=== PATIENT | male | born 1940 | race Hispanic/Latino ===

== ENCOUNTER → 2018-03-07 | Outpatient (CLI) | payer MEDICARE ==
[~2018-03-07] MED LIST: IOPAMIDOL 370 MG/ML 200 ML INFUS..BTL INJ ONE; SODIUM CHLORIDE 0.9% 100 ML 100 ML ONE
[2018-03-07 17:16] LABS: CREATININE, SERUM 1.5 mg/dL (0.72-1.25)
--- NOTE | 2018-03-13 08:49 | Diagnostic Imaging Report ---
ABDOMINOPELVIC CT WITH CTA RUNOFF PROTOCOL WITH IV CONTRAST. 3D post-processing of the images was performed, and the post-processed images were used in interpretation. REASON FOR STUDY: PVD COMPARISON: none available. RADIATION DOSE: Dose length product: 655.7 mGy cm Dose modulation, iterative reconstruction, and/or weight based adjustment of the mA/kV was utilized to reduce the radiation dose to as low as reasonably achievable. Routine protocol performed. FINDINGS: VESSELS: There are moderate calcified and noncalcified atherosclerotic plaques in the aorta and its major branches. There is no evidence of a flap within the aorta to suggest a dissection. No evidence of abdominal aortic aneurysm. The suprarenal abdominal aorta measures up to 2.4 cm and the infrarenal abdominal aorta measures up to 2.0 cm. The celiac artery, superior mesenteric artery, and inferior mesenteric artery are patent and demonstrate moderate atherosclerotic changes. There is a single right renal artery and a single left renal artery, both of which are patent. Moderate atherosclerotic changes of bilateral common and internal iliac arteries and mild atherosclerotic changes of bilateral external iliac arteries. Right lower extremity: Moderate atherosclerotic changes of the right common femoral artery, deep femoral artery, and proximal right superficial femoral artery without significant stenosis. Severe atherosclerotic changes of the distal right superficial femoral artery. There is ectasia of the right distal superficial femoral artery measuring up to 1.4 cm. There is occlusion of the distal right superficial femoral artery as well as nearly the entire course of the popliteal artery. 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 A small portion of the mid popliteal artery demonstrates partial recanalization on series 3, image 235. The tibioperoneal trunk is occluded. The tibioperoneal trunk and branch vessels demonstrate severe atherosclerotic calcifications. The anterior tibial artery is occluded proximally, and reconstitutes in its midportion on image 270. The anterior tibial artery is patent to the level of the distal ankle where it demonstrates multifocal stenosis as the dorsalis pedis. The peroneal artery is occluded at the origin and demonstrates small areas of recanalization of the proximal portion then is occluded in the mid and distal portions. The posterior tibial artery is occluded at the origin, reconstitutes briefly proximally and then is occluded throughout its course until distally when it reconstitutes in the medial ankle. Left lower extremity: Mild atherosclerotic changes of the left common femoral artery, deep femoral artery, and proximal left superficial femoral artery without significant stenosis. Severe atherosclerotic changes of the distal left superficial femoral artery. There is ectasia of the distal left superficial femoral artery measuring up to 1.2 cm. There is a partially thrombosed left popliteal artery aneurysm, which measures up to 3.7 x 4.0 cm. The aneurysm extends to the distal left popliteal artery, where measures up to 2.5 x 2.4 cm, which is partially thrombosed. The tibioperoneal trunk and branch vessels demonstrate severe atherosclerotic calcifications. The tibioperoneal trunk is occluded. The anterior tibial artery is occluded to the level of the ankle, and then reconstitutes for a tiny segment distally and then occludes again. The dorsalis pedis reconstitutes and demonstrates multifocal stenoses. The peroneal artery is occluded from the origin throughout to the distal portion where it reconstitutes in small segments and then occludes again. The posterior tibial artery is occluded throughout its course. ABDOMEN: Patchy subsegmental atelectasis at the lung bases. There is a 4 mm left lower lobe ground glass nodule on series 3, image 5. Small hiatal hernia. The liver, pancreas, spleen, are unremarkable. There is no intra-abdominal or retroperitoneal adenopathy. There is scattered colonic diverticulosis without CT evidence of diverticulitis. There is a 1.9 cm right adrenal nodule (1 HU), consistent with adrenal adenoma. Bilateral wedge-shaped defects of the kidneys, suggestive of renal infarcts. BONES: There are no bony lytic or blastic lesions. There is sacralization of the inferior most lumbar vertebral body. For purposes of numbering, the level superior to this will be considered L5. There is a severe wedge compression deformity of L1 with loss of greater than 75% of vertebral body height. No evidence of bony retropulsion. IMPRESSION: 1. Bilateral popliteal artery aneurysms, left larger than right, completely thrombosed on the right and partially thrombosed on the left. Near complete occlusion of bilateral lower extremity runoff vessels as above. Note is made per Cardiology note on 02/24/18, the patient has known occluded right popliteal artery aneurysm. 2. Severe atherosclerotic changes of the bilateral superficial femoral artery, popliteal artery, and branch vessels. Ectasia of bilateral distal superficial femoral arteries as above. 3. Reconstitution of the right posterior tibial artery and right dorsalis pedis artery at the ankle, which are multifocally stenosed, and supply the right foot. 4. Reconstitution of the dorsalis pedis artery on the left which demonstrates multifocal stenoses and supplies the left foot. 5. Moderate atherosclerotic changes of the abdominal aorta and branch vessels. No evidence of aortic dissection or aneurysm. 6. Age indeterminate severe wedge compression deformity of L1. Signed by: Dr. Azeb Denis MD on 03/13/2018 9:44 AM
== END ==
LOC: CT 16:18
PROVIDERS: ATTEND Thoracic Surgery (Cardiothoracic Vascular Surgery)
DX: I73.9 Peripheral vascular disease, unspecified (principal)
CPT/HCPCS: 36415; 75635; 82565; 84520; Q9967

== ENCOUNTER → 2018-05-22 | Outpatient (CLI) | payer MEDICARE ==
[~2018-05-22] MED LIST changes: -IOPAMIDOL 370 MG/ML 200 ML INFUS..BTL INJ ONE; -SODIUM CHLORIDE 0.9% 100 ML 100 ML ONE; +SODIUM CHLORIDE 0.9% 500ML 500 ML ONE
[2018-05-22 15:39] LABS: ANION GAP 13.5 mmol/L (8-16); CALCIUM 8.4 mg/dL (8.4-10.2); CREATININE, SERUM 1.42 mg/dL (0.72-1.25); POTASSIUM 4.5 mmol/L (3.5-5.1)
--- NOTE | 2018-05-23 08:56 | Diagnostic Imaging Report ---
CTA OF THE ABDOMEN, PELVIS AND BILATERAL LOWER EXTREMITIES WITH CONTRAST. INDICATION: Popliteal artery aneurysm COMPARISON: CTA, abdomen, pelvis and lower extremities, 03/07/2018 TECHNIQUE: Abdomen and pelvis were scanned utilizing a multidetector helical scanner from the lung base to the pubic symphysis after administration of IV contrast. Coronal and sagittal reformations were obtained. Routine protocol was performed. Scan was performed when during portal venous phase. CT angiography protocol was used. IV CONTRAST: 100 mL of Isovue-370 ORAL CONTRAST: None RADIATION DOSE: Total DLP: 660.72 mGy*cm Estimated effective dose: (DLP x 0.015 x size factor) mSv COMPLICATIONS: None Dose modulation, iterative reconstruction, and/or weight based adjustment of the mA/kV was utilized to reduce the radiation dose to as low as reasonably achievable. DISCUSSION: ABDOMEN AND PELVIS: LINES and TUBES: None. LOWER THORAX: Lung bases clear. Heart size normal with extensive coronary artery calcification. HEPATOBILIARY: No focal hepatic lesions. No biliary ductal dilation. GALLBLADDER: No radio-opaque stones or sludge. No wall thickening. SPLEEN: No splenomegaly. PANCREAS: No focal masses or ductal dilatation. ADRENALS: Fat density 1.7 cm right adrenal nodule compatible with lipid rich adenoma. KIDNEYS/URETERS: Kidneys enhance symmetrically. Lobulated renal contours, possibly relating to scars or infarcts. No hydronephrosis. Stable 3.2 cm upper pole right renal cyst. No stones. GI TRACT: No abnormal distention, wall thickening, or evidence of bowel obstruction. Sigmoid diverticulosis with no CT evidence for acute diverticulitis. Appendix is normal. PELVIC ORGANS/BLADDER: Unremarkable. LYMPH NODES: No lymphadenopathy. PERITONEUM / RETROPERITONEUM: No free air or fluid. BONES: Stable compression of T12 with degenerative changes. SOFT TISSUES: Superficial surrounding soft tissues show an umbilical hernia containing fat. VESSELS: Abdominal aorta: The abdominal aorta is atherosclerotic without aneurysm or dissection. Celiac, SMA, bilateral renal arteries and ELIF are patent. Right lower extremity: Common and external iliac arteries are patent without high-grade stenosis. Internal iliac artery is also patent. Common femoral, deep femoral and superficial femoral arteries are patent. Distal superficial femoral artery is ectatic with localized 1.4 cm aneurysm just above the abductor canal. The proximal popliteal artery is patent. Again noted is a 2.8 cm thrombosed popliteal artery aneurysm behind the knee. The distal half of the popliteal artery is occluded. The popliteal trifurcation is occluded. There is apparent reconstitution of the distal anterior tibial artery with less opacification of the dorsalis pedis than on previous exam. Left lower extremity: Left common and external iliac arteries are patent without high-grade stenosis. Internal iliac is also patent. Common femoral, superficial femoral and popliteal arteries are patent on the left. The mid popliteal artery is less well opacified than on the previous exam. Some opacification remains within the 3.6 cm left popliteal artery aneurysm behind the knee but there is now no opacification of the popliteal artery below the aneurysm. There is some reconstitution of the peroneal artery in the calf with no significant flow seen into the dorsalis pedis or posterior tibial arteries. IMPRESSION: 1. No significant change of abdominal findings. Right adrenal adenoma and right renal cyst again noted. Lobulated contours of the kidneys likely reflecting scar or infarcts. 2. In the right lower extremity, again noted is a thrombosed popliteal artery aneurysm behind the knee. No significant popliteal reconstitution is seen below the aneurysm or the popliteal trifurcation. There is less opacification of the distal anterior tibial artery and dorsalis pedis artery than on prior exam which may indicate progression of occlusive disease or may be a function of bolus timing. 3. In the left lower extremity, again noted is a large mid popliteal artery aneurysm behind the knee. There is less opacification within the aneurysm and absent opacification of the distal popliteal artery below the aneurysm, likely reflecting progression of popliteal occlusion. There is trace opacification of the peroneal artery and in the reconstituted dorsalis pedis artery. Signed by: Dr. Juan José Vincent M.D. on 05/23/2018 8:53 AM
== END ==
LOC: CT 14:31
PROVIDERS: ATTEND Internal Medicine Interventional Cardiology
DX: I72.4 Aneurysm of artery of lower extremity (principal)
CPT/HCPCS: 36415; 75635; 80048; 96360; J7040

== ENCOUNTER → 2018-10-21 | Day surgery (SDC) | payer MEDICARE ==
--- NOTE | 2018-10-13 15:17 | Diagnostic Imaging Report ---
EXAMINATION: CHEST 2 VIEWS INDICATION: Pre-operative COMPARISON: None FINDINGS: LINES/TUBES:None LUNGS:The lungs are well-inflated. No focal consolidation or pulmonary edema. Symmetric nodular opacities overlying the lower lung zones consistent with nipple shadows. PLEURA:No pleural effusion or pneumothorax. MEDIASTINUM:The cardiomediastinal silhouette appears normal in size and shape. Atherosclerotic calcifications of the thoracic aorta. BONES/SOFT TISSUES:Age-indeterminate T12 compression fracture. ABDOMEN:No free air under the diaphragm. IMPRESSION: No focal pneumonia or pulmonary edema. Signed by: Boo Cui MD on 10/13/2018 3:14 PM
[2018-10-13 16:54] LABS: BASOPHILS % 0.6 % (0.0-1.0); EOSINOPHILS # (AUTO) 0.1 (0.0-0.4); HEMATOCRIT 41.7 % (38.2-49.6); HEMOGLOBIN 13.7 g/dL (14.0-18.0); LYMPHOCYTES # (AUTO) 1.8 (1.0-3.2); LYMPHOCYTES % 27.9 % (18.0-39.1); MEAN CORPUSCULAR HEMOGLOBIN 31.4 pg (28-32); MEAN CORPUSCULAR HGB CONC 32.9 g/dL (31-35); MEAN CORPUSCULAR VOLUME 95.6 fL (81-99); MONOCYTES # (AUTO) 0.6 (0.2-0.8); MONOCYTES % 8.8 % (4.4-11.3); NEUTROPHILS # (AUTO) 3.9 (2.1-6.9); NEUTROPHILS % 60.5 % (38.7-80.0); PLATELET COUNT 219 x10e3/uL (140-360); RED BLOOD COUNT 4.36 x10e6/uL (4.3-5.7); RED CELL DISTRIBUTION WIDTH 13.9 % (11.7-14.4)
[2018-10-13 17:07] LABS: ANION GAP 16.8 mmol/L (8-16); CALCIUM 9.4 mg/dL (8.4-10.2); CREATININE, SERUM 1.38 mg/dL (0.72-1.25)
[2018-10-13 17:08] LABS: POTASSIUM 5.8 mmol/L (3.5-5.1)
[~2018-10-21] MED LIST changes: +ACETAMINOPHEN/CODEINE 300MG - 30MG TAB ONE; +AVODART0.5 MG PO; +BACITRACIN 50,000 UNIT VIAL ONE; +BUPIVACAINE HCL 0.5% INJ 30 ML VIAL INJ ONE; +FENTANYL CITRATE/PF 100MCG/2 ML INJ ONE; +GLYCOPYRROLATE INJ 1MG/ 5 ML SYR ONE; +HYDRALAZINE HCL 20 MG/ML VIAL ONE; +LABETALOL HCL 5 MG/ML 20ML VIAL ONE; +LEVOFLOXACIN 500MG/D5W 100ML 100 ML IV ONE; +LIDOCAINE HCL 2% LOCAL INJ 5 ML SDV VIAL INJ ONE; +LISINOPRIL10 MG PO; +ONDANSETRON HCL INJ 2MG/ML 2ML 2 MG/ML VIAL ONE; +PROPOFOL IV EMULSION 10 MG/ML 50 ML VIAL ONE; +SEVOFLURANE INHAL SOLN 250 ML PEN BTL ONE; -SODIUM CHLORIDE 0.9% 500ML 500 ML ONE; +XARELTO10 MG PO
--- OUTSIDE RECORDS SUMMARY | 2018-10-21 07:43 | XMS REPORT | Summary of Care ---
Author Author OSCAR Justice, DILLAN Manning Unknown Address Unknown Phone Unavailable Care Team Providers Care Social Service Assistant Name Role Phone DR OSCAR GOODE Unavailable Unavailable MAX SIMON, CHANDLER MORENO Unavailable Unavailable LESLIE SIMON, CRISS Villatoro Unavailable Unavailable Unavailable Unavailable Functional Status Name Dates Details Functional status health issues are not documented Status: Name Dates Details Cognitive status health issues are not documented Status: Problems Name Dates Details PVD (peripheral vascular disease) (443.9, I73.9) Status: Active Popliteal artery aneurysm (442.3, I72.4) Status: Active Medications Name Dates Details Norvasc 5 MG Oral Tablet Active Lisinopril 40 MG Oral Tablet * Refills: 0 Active Xarelto 15 MG Oral Tablet * Refills: 0 Active Avodart 0.5 MG Oral Capsule * Refills: 0 Active Allergies and Adverse Reactions Name Dates Details Penicillins (Allergy) Status: Active Procedures Procedure Dates Details Procedures not documented Immunization Name Dates Details Immunizations not documented Social History Name Dates Details - Status: Name Dates Details Never smoker Vital Signs Date Test Result Details [id number] BP Systolic 118 mm[Hg] Status: BP Diastolic 74 mm[Hg] Status: Height 68 in Status: Weight 165 lb Status: Body Mass Index Calculated 25.09 kg/m2 Status: Body Surface Area Calculated 1.88 m2 Status: Results Date Description Value Details [id number] Tobacco Use Screening Completed DONE Plan of Care Name Dates Details Planned Observations Planned Goals not documented Interventions Provided Labs/Procedures/Imaging* CVRAD - Bilateral Lower Arterial Duplex - 19563; Done: 23 Jun 2018 * CVRAD - Lower Arterial Seg. Pressures - 19174; Done: 23 Jun 2018 Instructions Name Dates Details Instructions not documented Encounters Appointment; DILLAN MOORE M.D. Encounter Diagnosis: Problem not documented On: 16-Jun-2018 13:15 Appointment; DR OSCAR GOODE Encounter Diagnosis: Problem not documented On: 23-Jun-2018 15:00
--- OUTSIDE RECORDS SUMMARY | 2018-10-21 07:43 | XMS REPORT ---
Author Author [facility] Address Unknown Phone Unavailable Care Team Providers Care [employer] Name Role Phone MONIKA GALARZA Unavailable Unavailable CRISS NELSON Unavailable Unavailable JAVIER FOREMAN Unavailable Unavailable Problems This patient has no known problems. Allergies, Adverse Reactions, Alerts This patient has no known allergies or adverse reactions. Medications This patient has no known medications. Results Test Description Test Time Test Comments Text Results Atomic Results Result Comments CHEST 2 VIEWS 2018-10-13 15:12:00 [place] [address] Patient Name: DEJAH SEXTON MR #: [id number] : 1940 Age/Sex: 78/M Req #: [id number] Adm Physician: Ordered by: MONIKA GALARZA MD Report #: [id number] Location: OR Room/Bed: Procedure: [id number] DX/CHEST 2 VIEWS Exam Date: Exam Time: REPORT STATUS: Signed EXAMINATION: CHEST 2 VIEWS INDICATION: Pre-operative COMPARISON: None FINDINGS: LINES/TUBES:None LUNGS:The lungs are well- inflated. No focal consolidation or pulmonary edema. Symmetric nodular opacities overlying the lower lung zones consistent with nipple shadows. PLEURA:No pleural effusion or pneumothorax. MEDIASTINUM:The cardiomediastinal silhouette appears normal in size and shape. Atherosclerotic calcifications of the thoracic aorta. BONES/SOFT TISSUES:Age-indeterminate T12 compression fracture. ABDOMEN:No free air under the diaphragm. IMPRESSION: No focal pneumonia or pulmonary edema. Signed by: Medhat Juarez MD on 10/13/2018 3:14 PM Dictated By: MEDHAT JUAREZ MD 13 Transcribed By: ROBERT on 10/13/181513 COPY TO: MONIKA GALARZA MD CTA ABD/PEL/RUN OFF 2018-05-23 08:08:00 [place] [address] Patient Name: DEJAH SEXTON MR #: [id number] : 1940 Age/Sex: 78/M Req #: [id number] Adm Physician: Ordered by: CRISS NELSON MD Report #: [id number] Location: CT Room/Bed: Procedure: [id number] CT/CTA ABD/PEL/RUN OFF Exam Date: 05/22/18 Exam Time: 1615 REPORT STATUS: Signed CTA OF THE ABDOMEN, PELVIS AND BILATERAL LOWER EXTREMIT IES WITH CONTRAST. INDICATION: Popliteal artery aneurysm COMPARISON: CTA, abdomen, pelvis and lower extremities, 03/07/2018 TECHNIQUE: Abdomen and pelvis were scanned utilizing a multidetector helical scanner from the lung base to the pubic symphysis after administration of IV contrast. Coronal and sagittal reformations were obtained. Routine protocol was performed. Scan was performed when during portal venous phase. CT angiography protocol was used. IV CONTRAST: 100 mL of Isovue-370 ORAL CONTRAST: None RADIATION DOSE: Total DLP: 660.72 mGy*cm Estimated effective dose: (DLP x 0.015 x size factor) mSv COMPLICATIONS: None Dose modulation, iterative reconstruction, and/or weight based adjustment of the mA/kV was utilized to reduce the radiation dose to as low as reasonably achievable. DISCUSSION: ABDOMEN AND PELVIS: LINES and TUBES: None. LOWER THORAX: Lung bases clear. Heart size normal with e xtensive coronary artery calcification. HEPATOBILIARY: No focal hepatic lesions. No biliary ductal dilation. GALLBLADDER: No radio-opaque stones or sludge. No wall thickening. SPLEEN: No splenomegaly. PANCREAS: No focal masses or ductal dilatation. ADRENALS: Fat density 1.7 cm right adrenal nodule compatible with lipid rich adenoma. KIDNEYS/URETERS: Kidneys enhance symmetrically. Lobulated renal contours, possibly relating to scars or infarcts. No hydronephrosis. Stable 3.2 cm upper pole right renal cyst. No stones. GI TRACT: No abnormal distention, wall thickening, or evidence of bowel obstruction. Sigmoid diverticulosis with no CT evidence for acute diverticulitis. Appendix is normal. PELVIC ORGANS/BLADDER: Unremarkable. LYMPH NODES: No lymphadenopathy. PERITONEUM / RETROPERITONEUM: No free air or fluid. BONES: Stable compression of T12 with degenerative changes. SOFT TISSUES: Superficial surrounding soft tissues show an umbilical hernia c ontaining fat. VESSELS: Abdominal aorta: The abdominal aorta is atherosclerotic without aneurysm or dissection. Celiac, SMA, bilateral renal arteries and ELIF are patent. Right lower extremity: Common and external iliac arteries are patent without high-grade stenosis. Internal iliac artery is also patent. Common femoral, deep femoral and superficial femoral arteries are patent. Distal superficial femoral artery is ectatic with localized 1.4 cm aneurysm just above the abductor canal. The proximal popliteal artery is patent. Again noted is a 2.8 cm thrombosed popliteal artery aneurysm behind the knee. The distal half of the popliteal artery is occluded. The popliteal trifurcation is occluded. There is apparent reconstitution of the distal anterior tibial artery with less opacification of the dorsalis pedis than on previous exam. Left lower extremity: Left common and external iliac arteries are patent without high-grade stenosis. Internal iliac is also patent. Common femoral, superficial femoral and popliteal arteries are patent on the left. The mid popliteal artery is less well opacified than on the previous exam. Some opacification remains within the 3.6 cm left popliteal artery aneurysm behind the knee but there is now no opacification of the popliteal artery below the aneurysm. There is some reconstitution of the peroneal artery in the calf with no significant flow seen into the dorsalis pedis or posterior tibial arteries. IMPRESSION: 1. No significant change of abdominal findings. Right adrenal adenoma and ri ght renal cyst again noted. Lobulated contours of the kidneys likely reflecting scar or infarcts. 2. In the right lower extremity, again noted is a thrombosed popliteal artery aneurysm behind the knee. No significant popliteal reconstitution is seen below the aneurysm or the popliteal trifurcation. There is less opacification of the distal anterior tibial artery and dorsalis pedis artery than on prior exam which may indicate progression of occlusive disease or may be a function of bolus timing. 3. In the left lower extremity, again noted is a large mid popliteal artery aneurysm behind the knee. There is less opacification within the aneurysm and absent opacification of the distal popliteal artery below the aneurysm, likely reflecting progression of popliteal occlusion. There is trace opacification of the peroneal artery and in the reconstituted dorsalis pedis artery. Signed by: Dr. Kranthi Marshall M.D. on 05/23/2018 8:53 AM Dictated By: KRANTHI MARSHALL MD 2 Transcribed By: ROBERT on 05/23/18852 COPY TO: CRISS NELSON MD CTA ABD/PEL/RUN OFF 2018-03-13 07:53:00 [place] [address] Patient Name: DEJAH SEXTON MR #: [id number] : 1940 Age/Sex: 78/M Req #: [id number] Adm Physician: Ordered by: JAVIER FOREMAN MD Report #: [id number] Location: CT Room/Bed: Procedure: [id number] CT/CTA ABD/PEL/RUN OFF Exam Date: 03/07/18 Exam Time: 1830 REPORT STATUS: Signed ABDOMINOPELVIC CT WITH CTA RUNOFF PROTOCOL WITH IV CON TRAST. 3D post-processing of the images was performed, and the post- processed images were used in interpretation. REASON FOR STUDY: PVD COMPARISON: none available. RADIATION DOSE: Dose length product: 655.7 mGy cm Dose modulation, iterative reconstruction, and/or weight based adjustment of the mA/kV was utilized to reduce the radiation dose to as low as reasonably achievable. Routine protocol performed. FINDINGS: VESSELS: There are moderate calcified and noncalcified atherosclerotic plaques in the aorta and its major branches. There is no evidence of a flap within the aorta to suggest a dissection. No evidence of abdominal aortic aneurysm. The suprarenal abdominal aorta measures up to 2.4 cm and the infrarenal abdominal aorta measures up to 2.0 cm. The celiac artery, superior mesenteric artery, and inferior mesenteric artery are patent and demonstrate moderate atherosclerotic changes. There is a single right renal artery and a single left renal artery, both of which are patent. Moderate atherosclerotic changes of bilateral common and internal iliac arteries and mild atherosclerotic changes of bilateral external iliac arteries. Right lower extremity: Moderate atherosclerotic changes of the right common femoral artery, deep femoral artery, and proximal right superficial femoral artery without significant stenosis. Severe atherosclerotic changes of the distal right superficial femoral artery. There is ectasia of the right distal superficial femoral artery measuring up to 1.4 cm. There is occlusion of the distal right superficial femoral artery as well as nearly the entire course of the popliteal artery. 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 A small portion of the mid popliteal artery demonstrates partial recanalization on series 3, image 235. The tibioperoneal trunk is occluded. The tibioperoneal trunk and branch vessels demonstrate severe atherosclerotic calcifications. The anterior tibial artery is occluded proximally, and reconstitutes in its midportion on image 270. The anterior tibial artery is patent to the level of the distal ankle where it demonstrates multifocal stenosis as the dorsalis pedis. The peroneal artery is occluded at the origin and demonstrates small areas of recanalization of the proximal portion then is occluded in the mid and distal portions. The posterior tibial artery is occluded at the origin, reconstitutes briefly proximally and then is occluded throughout its course until distally when it reconstitutes in the medial ankle. Left lower extremity: Mild atherosclerotic changes of the left common femoral artery, deep femoral artery, and proximal left superficial femoral artery without significant stenosis. Severe atherosclerotic changes of the distal left superficial femoral artery. There is ectasia of the distal left superficial femoral artery measuring up to 1.2 cm. There is a partially thrombosed left popliteal artery aneurysm, which measures up to 3.7 x 4.0 cm. The aneurysm extends to the distal left popliteal artery, where measures up to 2.5 x 2.4 cm, which is partially thrombosed. The tibioperoneal trunk and branch vessels demonstrate severe atherosclerotic calcifications. The tibioperoneal trunk is occluded. The anterior tibial artery is occluded to the level of the ankle, and then reconstitutes for a tiny segment distally and then occludes again. The dorsalis pedis reconstitutes and demonstrates multifocal stenoses. The peroneal artery is occluded from the origin throughout to the distal portion where it reconstitutes in small segments and then occludes again. The posterior tibial artery is occluded throughout its course. ABDOMEN: Patchy subsegmental atelectasis at the lung bases. There is a 4 mm left lower lobe ground glass nodule on series 3, image 5. Small hiatal hernia. The liver, pancreas, spleen, are unremarkable. There i s no intra-abdominal or retroperitoneal adenopathy. There is scattered colonic diverticulosis without CT evidence of diverticulitis. There is a 1.9 cm right adrenal nodule (1 HU), consistent with adrenal adenoma. Bilateral wedge-shaped defects of the kidneys, suggestive of renal infarcts. BONES: There are no bony lytic or blastic lesions. There is sacralization of the inferior most lumbar vertebral body. For purposes of numbering, the level superior to this will be considered L5. There is a severe wedge compression deformity of L1 with loss of greater than 75% of vertebral body height. No evidence of bony retropulsion. IMPRESSION: 1. Bilateral popliteal artery aneurysms, left larger than right, completely thrombosed on the right and partially thrombosed on the left. Near complete occlusion of bilateral lower extremity runoff vessels as above. Note is made per Cardiology note on 02/24/18, the patient has known occluded right popliteal artery aneurysm. 2. Severe atherosclerotic changes of the bilateral superficial femoral artery, popliteal artery, and branch vessels. Ectasia of bilateral distal superficial femoral arteries as above. 3. Reconstitution of the right posterior tibial artery and right dorsalis pedis artery at the ankle, which are multifocally stenosed, and supply the right foot. 4. Reconstitution of the dorsalis pe dis artery on the left which demonstrates multifocal stenoses and supplies the left foot. 5. Moderate atherosclerotic changes of the abdominal aorta and branch vessels. No evidence of aortic dissection or aneurysm. 6. Age indeterminate severe wedge compression deformity of L1. Signed by: Dr. Sondra Last MD on 03/13/2018 9:44 AM Dictated By: SONDRA LAST MD Transcribed By: ROBERT on 03/13/18943 COPY TO: JAVIER FOREMAN MD
[2018-10-21 08:32] LABS: ANION GAP 11.7 mmol/L (8-16); CALCIUM 9.3 mg/dL (8.4-10.2); CREATININE, SERUM 1.29 mg/dL (0.72-1.25); POTASSIUM 4.7 mmol/L (3.5-5.1)
--- NOTE | 2018-10-21 12:24 | Operative Report ---
DATE OF PROCEDURE: 10/21/2018 SURGEON: Ruben Martinez MD PREOPERATIVE DIAGNOSIS: Right inguinal hernia. POSTOPERATIVE DIAGNOSIS: Right inguinal hernia. PROCEDURE: Repair of right inguinal hernia with mesh. OFFICE MACHINE SERVICER APPRENTICE: None. ANESTHESIA: General. INDICATIONS AND FINDINGS: The patient is an 78-year-old male, presenting with complaints of bulge in the right groin, which is increased in size. At Surgery, the patient was found to have indirect right inguinal hernia. TECHNIQUE: After adequate general anesthesia, the patient in supine position, the right groin area was prepped and draped in sterile fashion with ChloraPrep solution. Transverse incision was made in the right inguinal area throughout the subcutaneous tissues. Nino's fashion to the external oblique fascia was seen; this was opened in direction of its fibers through the external ring. The ilioinguinal nerve was identified and preserved, gently were dissected free and retracted away from the inguinal canal. The spermatic cord was dissected free from the floor of the inguinal canal. Cremasteric fibers were opened. There was an indirect hernia sac with herniated mass, this was dissected free from the spermatic cord up to the internal ring. Then, reduced through the internal ring. There was no evidence of indirect hernia. A large Prolene mesh hernia system, which had been soaked in antibiotic solution, it was placed through the internal ring with the underlay patch opened up in the preperitoneal space. Onlay patch was laid over the floor of the inguinal canal. The keyhole opening created to allow exit of the spermatic cord. The Onlay patch was sutured to the shelving edge of inguinal ligament laterally and conjoint tendon medially, this was done with interrupted sutures of 0 prolene. Care was taken not to entrap the general femoral or iliohypogastric nerves. Once the mesh was in place, the spermatic cord and ilioinguinal nerve were returned to their normal positions. The wound was inspected for hemostasis, which was seen to be adequate. The wound was then infiltrated with 0.5% Marcaine. The external oblique fascia was closed with running suture of 2-0 Vicryl. Care was taken not to entrap the spermatic cord or ilioinguinal nerve. Nino's fascia was closed with running suture with 3-0 Vicryl. Skin was closed with a running subcuticular suture of 4-0 Vicryl. Dermabond and sterile dressing were applied. The patient tolerated the procedure well. Estimated blood loss was less than 5 mL. There were no complications. All counts were correct and the patient was taken to the recovery room in satisfactory condition. MD TAMMIE Suazo/KATIE /[id number]
[2018-10-21 13:30] VITALS: BP 148/91
== END | disposition home or self-care (01) ==
LOC: OR 07:36
PROVIDERS: ATTEND Surgery
DX: K40.90 Unilateral inguinal hernia, without obstruction or gangrene, not specified as recurrent (principal); I10 Essential (primary) hypertension; F41.9 Anxiety disorder, unspecified; Z88.0 Allergy status to penicillin; Z01.812 Encounter for preprocedural laboratory examination; Z01.818 Encounter for other preprocedural examination; Z79.02 Long term (current) use of antithrombotics/antiplatelets
CPT/HCPCS: 36415 ×2; 49505; 71046; 80048 ×2; 85025; C1781; J0360; J1956; J2001; J2405; J2704; J3010; J3490 ×2

== ENCOUNTER → 2024-11-05 | Outpatient (REF) | payer MEDICARE ==
[~2024-11-05] MED LIST changes: -ACETAMINOPHEN/CODEINE 300MG - 30MG TAB ONE; -BACITRACIN 50,000 UNIT VIAL ONE; -BUPIVACAINE HCL 0.5% INJ 30 ML VIAL INJ ONE; -FENTANYL CITRATE/PF 100MCG/2 ML INJ ONE; -GLYCOPYRROLATE INJ 1MG/ 5 ML SYR ONE; -HYDRALAZINE HCL 20 MG/ML VIAL ONE; -LABETALOL HCL 5 MG/ML 20ML VIAL ONE; -LEVOFLOXACIN 500MG/D5W 100ML 100 ML IV ONE; -LIDOCAINE HCL 2% LOCAL INJ 5 ML SDV VIAL INJ ONE; -ONDANSETRON HCL INJ 2MG/ML 2ML 2 MG/ML VIAL ONE; -PROPOFOL IV EMULSION 10 MG/ML 50 ML VIAL ONE; -SEVOFLURANE INHAL SOLN 250 ML PEN BTL ONE
== END ==
LOC: RAD 11:57
PROVIDERS: ATTEND Internal Medicine
DX: I31.39 Other pericardial effusion (noninflammatory) (principal)
CPT/HCPCS: 71046